=== PATIENT | male | born 1955 | race Caucasian/White ===

== ENCOUNTER 2017-01-27 13:11 | Emergency (ER) | payer SELFPAY ==
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
[2017-01-27 15:39] VITALS: BP 110/74
== END 2017-01-27 15:25 | disposition home or self-care (01) ==
LOC: UCEAST 13:11
DX: J32.9 Chronic sinusitis, unspecified (principal); Z87.891 Personal history of nicotine dependence; I10 Essential (primary) hypertension; F31.9 Bipolar disorder, unspecified
CPT/HCPCS: 99212; G0463

== ENCOUNTER 2017-10-30 14:08 | Emergency (ER) | payer BC ==
[2017-10-30 14:59] VITALS: BP 121/80
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
--- NOTE | 2017-10-30 16:12 | RAD ---
INDICATION: Cough COMPARISON: May 31, 2006 TECHNIQUE: PA and lateral dual-energy views were obtained. FINDINGS: Bones/Soft Tissues: There are no acute bony findings. There clips in left axilla. Cardiomediastinal: The cardiomediastinal silhouette is normal. Lungs: There are no infiltrates. Pleura: There are no pleural effusions. Other: None IMPRESSION: NO ACTIVE DISEASE.
== END 2017-10-30 16:59 | disposition home or self-care (01) ==
LOC: UCEAST 14:08
DX: J01.90 Acute sinusitis, unspecified (principal); I10 Essential (primary) hypertension; F17.210 Nicotine dependence, cigarettes, uncomplicated; Z91.030 Bee allergy status
CPT/HCPCS: 71020; 99212; G0463

== ENCOUNTER 2019-09-12 07:08 | Emergency (ER) | payer BC, OTHER ==
--- OUTSIDE RECORDS SUMMARY | 2019-09-12 07:13 | XMS REPORT | Continuity of Care Document ---
:1955 External Reference #:[id number] Author Name Jm Maier M.D. Address [address] [place] [address] Care Team Providers Name Role Phone [facility] - Care Team Information Labor Gang Supervisor [phone] Gastroenterology Jm Maier MD - Family Medicine Care Team Information Labor Gang Supervisor [phone] Maged Lewis DO - Gastroenterology Care Team Information Labor Gang Supervisor [phone] Problems Active Problems Provider Date Bipolar disorder Owen Yung M.D. Onset: 12/12/2011 Benign essential hypertension Owen Yung M.D. Onset: 07/31/2012 Benign prostatic hypertrophy with outflow Jm Maier M.D. Onset: 09/28 obstruction Arthropathy Jm Maier M.D. Onset: 09/28/2014 History of polyp of colon Jm Maier M.D. Onset: 09/28/2014 Actinic keratosis Jm Maier M.D. Onset: 10/04/2015 Neck pain Jm Maier M.D. Onset: 06/23/2018 Obstructive sleep apnea syndrome Jm Maier M.D. Onset: 07/28/2019 Social History Type Date Description Comments Sex Unknown Tobacco Use Start: Unknown End: Former Cigarette Smoker 34 years - one pack per Unknown day, quit 2002 ETOH Use alcoholism clean for 22 years in Tobacco Use Start: Unknown End: Patient is a former smoker Patient quit smoking in Unknown 2012, prior to that he had an above 29-zbut-npos history Allergies, Adverse Reactions, Alerts Active Allergies Reaction Severity Comments Date NKDA 12/12/2011 Bee Stings 03/08/2009 Hay Fever 03/08/2009 Medications Active Medications SIG Qnty Indications Ordering Date Provider Amlodipine Besylate 1 by mouth 90tabs Jm FJoselito 07/28/2019 5mg every day Shallish, M.D. Tablets Sildenafil Citrate take 1/2- 1 20tabs Jm F. 07/28/2019 50mg tablet one hour Shallish, M.D. Tablets prior to sexual relations, maximum daily dose 1 tablet Venlafaxine HCL ER take 1 capsule 90caps F31.9 Jm FJoselito 02/12/2019 75mg by mouth every Shallish, M.D. Caps ER 24HR day Carbamazepine take 1 tablet 270Tablet Jm FJoselito 02/01/2019 200mg by mouth every Shallish, M.D. Tablets morning and take 2 tablets by mouth at bedtime Montelukast Sodium Take 1 Tablet 90tabs J30.89 Tamiko Lamb, 02/20/2018 10mg By Mouth Every [employer] Tablets Day Metoprolol Succinate Take 1 Tablet 90tabs I10 Jm FJoselito 02/24/2016 ER By Mouth Every Shallish, M.D. 25mg Tablets ER 24HR Day R00.0 Metoprolol Succinate ER Take 1 Tablet By 90tabs I10 Tamiko Lamb, [facility] 100mg Mouth Daily Tablets ER 24HR R00.0 Viagra take 1/2 - 1 tablet 5tabs [facility], 09/28/2014 50mg Tablets by mouth 1 hour prior M.D. to sexual relations. Flomax 2 q hs Unknown 0.4mg Capsules Vitamin D-3 1 by mouth every day Jm F. Shallish, 1000Unit Capsules M.D. Tylenol Extra Strength 2 by mouth every 4 30tabs Jm F. Shallish, 500mg hrs M.D. Tablets Multivitamins 1 po qd Jm F. Shallish, Tablets M.D. Zyrtec Allergy 1 po qd Jm F. Shallish, 10mg Tablets M.D. Fish Oil 1 po bid Jm F. Shallish, 1000mg Capsules M.D. Glucosamine-Chondroitin 1 po bid Jm F. Shallish, M.D. 700/650 Capsules History Medications Doxycycline Hyclate 2 tabs by mouth 2caps Jm PedrazaJoselito Rosastricia, 04/22/2019 - M.D. 07/28/2019 100mg Capsules Amlodipine Besylate Take 1 Tablet By 90tabs Hugo Ospina, 2018 - Mouth Every Day M.D. 07/28/2019 2.5mg Tablets Immunizations CPT Code Status Date Vaccine Lot # [id number] Given 10/13/2018 Zoster (Shingles) Vaccine (HZV), Recombinant, [id number] Subunit, Adjuvanted 23887 Given 09/01/2018 Influenza Vac, Quadriv[place], [place] [address] Given 06/23/2018 Zoster (Shingles) Vaccine (HZV), Recombinant, [id number] Subunit, Adjuvanted 63611 Given 09/05/2016 Influenza Vac, [place]riv[place], [place] [address] Given 09/06/2015 Influenza vac quadrivalent preservative free 6 months and up 95285 Given 09/28/2014 Tdap Tetanus, W Pertussis [id number] 21822 Given 08/14/2012 DO Not Use Split Influenza Virus Vaccine [id number] 29243 Given 08/29/2010 DO Not Use Split Influenza Virus Vaccine [id number] 93775 Given 04/06/2009 Tetanus And Diptheria Adult Preservative Free [id number] >7Yrs Vital Signs Date Vital Result Comment 07/28/2019 1:04pm BP Systolic 120 mmHg BP Diastolic 70 mmHg Heart Rate 66 /min Body Temperature 97.2 F Respiratory Rate 20 /min Height 63.75 inches 5'3.75" Weight 156.00 lb BMI (Body Mass Index) 27.0 kg/m2 12/25/2018 2:11pm BP Systolic 136 mmHg BP Diastolic 102 mmHg Heart Rate 56 /min Body Temperature 97.0 F Respiratory Rate 16 /min Height 63.75 inches 5'3.75" Weight 159.00 lb BMI (Body Mass Index) 27.5 kg/m2 Results Test Date Facility Test Result H/L Range Note Laboratory test 07/15/2019 [facility] [place], [place] C Reactive 4.16 mg/L Normal <8.01 1 finding Protein Rheumatoid Factor < 10 IU/mL Normal <15 2 Nuclear AB (Rhoda) By 07/15/2019 [facility] [place] [place] Nuclear Ab (Rhoda) by Positive 1:320 Abnormal 3 Ifa Igg Ifa, IgG Rhoda Titer: 1:320 Rhoda Pattern: Speckled 4 Protein Electrophoresis 07/15/2019 [facility] [place] [place] Total Protein(Pep) 7.2 g/dL 6.3 - 7.9 Albumin 4.0 g/dL 3.4-4.7 Alpha-1 Globulin 0.3 g/dL 0.1-0.3 Alpha-2 Globulin 1.1 g/dL Abnormal 0.6-1.0 Beta Globulin 1.0 g/dL 0.7-1.2 Gamma Globulin 0.9 g/dL 0.6-1.6 Albumin/Globulin Ratio 1.23 Impression See Comment 5 1 [id number] 3 Gold Top SSTs 2 [id number] 3 Gold Top SSTs 3 REFERENCE VALUE <1:80 (Negative) 4 Test Performed by: [facility] [place] [place] [address] Double End Tenoner Setter: Rajinder Covington M.D. Ph.D.; CLIA# [id number] RESULT: No apparent monoclonal protein on serum electrophoresis. Test Performed by: [facility] [place] [address] Double End Tenoner Setter: Rajinder Covington M.D. Ph.D.; CLIA# [id number] Procedures Date Code Description Status 07/28/2019 73657 Electrocardiogram Complete Completed 07/12/2019 34205940 Colonoscopy Completed 04/23/2013 38827534 Colonoscopy Completed Medical Devices Description No Information Available Encounters Description No Information Available Assessments Date Code Description Provider 07/28/2019 F31.9 Bipolar disorder, unspecified Jm Maier M.D. 07/28/2019 I10 Essential (primary) hypertension Jm Maier M.D. 07/28/2019 N40.1 Benign prostatic hyperplasia with lower Jm Maier M.D. urinary tract symptoms 07/28/2019 Z86.010 Personal history of colonic polyps Jm Maier M.D. 07/28/2019 L57.0 Actinic keratosis Jm Maier M.D. 07/28/2019 M54.2 Cervicalgia Jm Maier M.D. 07/28/2019 G47.33 Obstructive sleep apnea (adult) (pediatric) Jm Maier M.D. 07/28/2019 Z00.00 Encounter for general adult medical Jm Maier M.D. examination without abnormal findings 07/15/2019 M54.2 Cervicalgia Jm Maier M.D. 07/07/2019 M54.2 Cervicalgia Jm Maier M.D. Plan of Treatment 07/28/2019 - Jm Maier M.D.F31.9 Bipolar disorder, unspecifiedComments: doing well on present [id number] Essential (primary) hypertensionNew Labs: Comp Metabolic-[facility], Ordered: 07/28/19Lipid Panel-[facility], Ordered: 07/28/19CB Electronic-[facility], Ordered: 07/28/19Ua - Non Micro ([facility]ma), Ordered: 07/28/19Free T4 ([facility]), Ordered: 07/28/19TSH ([facility]/ [facility]), Ordered: 07/28/19Comments:The patient will continue to monitor blood pressure in the near future, and let me know the blood pressure results if there are readings above 135/85.N40.1 Benign prostatic hyperplasia with lower urinary tract symptomsComments:Check PSA,continue care with afeludwN28.010 Personal history of colonic polypsComments:to have colonoscopy in near jhocsmR96.0 Actinic keratosisComments:continue follow up with Dr Ramesh yearly at wksvzK59.2 CervicalgiaNew Labs:Anti Dna (DS), Ordered: Comments:get MRI of the cspine, refer to Neurology regarding symptoms of worsening neck painG47.33 Obstructive sleep apnea (adult) (pediatric)Comments: refer to the sleep lab for lvqmbwwH35.00 Encounter for general adult medical examination without abnormal findingsNew Labs:Comp Metabolic-[facility], Ordered: 07/28/19Lipid Panel-[facility], Ordered: 07/28/19CBC Electronic- ALL [facility], Ordered: 07/28/19Ua - Non Micro ([facility]), Ordered: 07/28/19TSH ( [facility]), Ordered: 07/28/19PSA (ALL Lab [facility]), Ordered: 07/28/19Ict Hemoccult ([facility]), Ordered: 07/28/19Comments:pneumovax 23 valent given, flu shot givenRepeat screening CT scan of the chest given greater than 16-[id number] history of smoking and discontinuing smoking 7 years agoEKG shows normal sinus rhythm, normal tracingFollow up:Followup:. (Follow up)AllNew Medication: Amlodipine Besylate 5 mg - 1 by mouth every daySildenafil Citrate 50 mg - take 1 /2- 1 tablet one hour prior to sexual relations, maximum daily dose1 tabletComments:Medication Management Patient Understands medications he's taking ? Yes No Are there Barriersto Adherence? Yes No Has the patient been asked about herbal supplements and therapies, and OTC meds? Yes No Patient was given anticipatory guidance regarding routine health care screenings, immunizations, and primary prevention of illness.Follow up:return to office 3-4 months for follow up on blood pressure and neck pain Functional Status Description No Information Available Mental Status Description No Information Available Referrals Refer to Reason for Referral Status Appt Date Maged Lewis DO COlonoscopy- history of polyps , family history Scheduled 08/21/[address] [place] [id number] [phone]
[2019-09-12 07:21] VITALS: BP 147/89
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
== END 2019-09-12 07:43 | disposition home or self-care (01) ==
LOC: UCEAST 07:08
DX: R07.9 Chest pain, unspecified (principal); I10 Essential (primary) hypertension; R29.898 Other symptoms and signs involving the musculoskeletal system; Z91.030 Bee allergy status; Z87.891 Personal history of nicotine dependence; Z89.212 Acquired absence of left upper limb below elbow
CPT/HCPCS: 99212; G0463

== ENCOUNTER 2019-09-12 08:00 | Emergency (ER) | payer BC ==
[2019-09-12 08:23] LABS: ABS Eosinophils 0.3 10^3/ul (0-0.6); ABS Lymphocytes 1.2 10^3/ul (1.0-4.8); ABS Monocytes 0.5 10^3/ul (0-0.8); ABS Neutrophils 3.2 10^3/ul (1.5-7.7); Eosinophil % 5.5 %; Hematocrit 36 % (42-52); Hemoglobin 12.4 g/dL (14.0-18.0); Lymphocyte % 22.7 %; Mean Corpuscular HGB Conc 35 g/dL (31-36); Mean Corpuscular Hemoglobin 31 pg (27-31); Mean Corpuscular Volume 90 fL (80-94); Mean Platelet Volume 6.4 fL (7.4-10.4); Platelet Count 307 10^3/uL (150-450); Red Cell Distribution Width 14 % (10-15); White Blood Count 5.2 10^3/uL (3.5-10.8)
[2019-09-12 08:28] LABS: INR 1.03 (0.82-1.09)
[2019-09-12 08:39] LABS: Albumin 4.7 g/dL (3.2-5.2); BUN/Creatinine Ratio 12.3 (8-20); Calcium 9.4 mg/dL (8.6-10.3); EGFR African American 174.7 (>60); EGFR Non-African American 144.4 (>60); Globulin 2.3 g/dL (2-4); Potassium 4.1 mmol/L (3.5-5.0); Total Bilirubin 0.4 mg/dL (0.2-1.0)
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
[2019-09-12 09:40] LABS: C Reactive Protein 3.29 mg/L (<8.01); Magnesium 1.8 mg/dL (1.9-2.7)
[2019-09-12] MEDS ORDERED: Iohexol 350* (CONTRAST) 500 ML MDV IV ONE (10:04)
[2019-09-12 13:55] VITALS: BP 0/0
== END 2019-09-12 13:45 | disposition home or self-care (01) ==
LOC: ED 08:00
DX: R07.9 Chest pain, unspecified (principal); I10 Essential (primary) hypertension; K21.9 Gastro-esophageal reflux disease without esophagitis; F31.9 Bipolar disorder, unspecified; Z79.899 Other long term (current) drug therapy; Z87.891 Personal history of nicotine dependence
CPT/HCPCS: 36415; 71046; 71275; 80053; 82150; 83690; 83735; 84484; 85025; 85379; 85610; 86140; 93005; 99283; Q9967